=== PATIENT | female | born 1960 | race Hispanic/Latino ===

== ENCOUNTER 2019-07-23 10:16 | Observation (INO) | payer OTHER ==
[~2019-07-23] VITALS: Ht 167.6 cm; Wt 68.0 kg
[2019-07-23] MEDS ORDERED: SODIUM CHLORIDE 0.9% 1000ML 1,000 ML IV STA (10:27)
[2019-07-23 11:02] LABS: BASOPHILS % 0.7 % (0.0-1.0); EOSINOPHILS # (AUTO) 0.2 (0.0-0.4); EOSINOPHILS % 2.6 % (0.0-6.0); HEMATOCRIT 40.5 % (34.2-44.1); HEMOGLOBIN 13.5 g/dL (12.0-16.0); LYMPHOCYTES # (AUTO) 1.8 (1.0-3.2); LYMPHOCYTES % 30.8 % (18.0-39.1); MEAN CORPUSCULAR HEMOGLOBIN 27.5 pg (28-32); MEAN CORPUSCULAR HGB CONC 33.3 g/dL (31-35); MEAN CORPUSCULAR VOLUME 82.5 fL (81-99); MONOCYTES # (AUTO) 0.4 (0.2-0.8); MONOCYTES % 7.3 % (4.4-11.3); NEUTROPHILS # (AUTO) 3.4 (2.1-6.9); NEUTROPHILS % 58.1 % (38.7-80.0); PLATELET COUNT 218 x10e3/uL (140-360); RED BLOOD COUNT 4.91 x10e6/uL (3.6-5.1); RED CELL DISTRIBUTION WIDTH 13.2 % (11.7-14.4)
[2019-07-23 11:20] LABS: ALANINE AMINOTRANSFERASE 20 IU/L (0-55); ALBUMIN 4.1 g/dL (3.5-5.0); ALBUMIN/GLOBULIN RATIO 1.1 (0.8-2.0); ALKALINE PHOSPHATASE 125 IU/L (40-150); ANION GAP 15.6 mmol/L (8-16); BLOOD UREA NITROGEN 18 mg/dL (7-26); BUN/CREATININE RATIO 20 (6-25); CALCIUM 10.2 mg/dL (8.4-10.2); CARBON DIOXIDE 21 mmol/L (22-29); CHLORIDE 107 mmol/L (98-107); EST GLOMERULAR FILTRATION RATE > 60 ML/MIN (60-); GLUCOSE 93 mg/dL (74-118); POTASSIUM 3.6 mmol/L (3.5-5.1); SODIUM 140 mmol/L (136-145)
[2019-07-23] MEDS ORDERED: ONDANSETRON HCL INJ 2MG/ML 2ML 2 MG/ML VIAL IV NR (11:30)
[2019-07-23] MEDS ORDERED: KETOROLAC TROMETHAMINE 30 MG/ML VIAL IV ONE (11:30)
[2019-07-23] MEDS ORDERED: IOPAMIDOL 300MG/ML 50ML INFUS..BTL IV ONE (12:28)
[2019-07-23] MEDS ORDERED: B&O 60MG R/S 60 MG SUPP PR ONE (12:56)
[2019-07-23] MEDS ORDERED: FENTANYL CITRATE/PF 100MCG/2 ML INJ ONE ×2 (13:20→20:26)
[2019-07-23] MEDS ORDERED: ONDANSETRON HCL INJ 2MG/ML 2ML 2 MG/ML VIAL ONE (13:35)
[2019-07-23] MEDS ORDERED: METOCLOPRAMIDE HCL 10 MG/2ML VIAL ONE (13:53)
[2019-07-23 14:15] VITALS: BP 124/76
--- NOTE | 2019-07-23 14:35 | Diagnostic Imaging Report ---
Retrograde pyelogram. History: Uropathy. Comparison: None available. Discussion: Procedure was performed by urology. Contrast was injected in a retrograde fashion into the left ureter. Multiple images were obtained. Fluoro time: 23 seconds. Dose: 4.9 mGy (LEONEL) There is filling of the entire left ureter with contrast noted to flow into the left renal collecting system. A small cyst is noted filling with contrast in the lower pole of the left kidney. No filling defects are identified. Final image demonstrates a left double J internal ureteral stent extending from the left renal pelvis to the bladder. Signed by: Leonidas Bashir on 07/23/2019 2:32 PM
--- NOTE | 2019-07-23 19:25 | Operative Report ---
DATE OF PROCEDURE: SURGEON: Aime Curry MD PREOPERATIVE DIAGNOSIS: Left ureteral calculi. POSTOPERATIVE DIAGNOSIS: Left ureteral calculi. OPERATIONS PERFORMED: Cystoscopy, retrograde pyelogram, stone manipulation, dilatation of ureter, laser lithotripsy and stone extraction, and placement of double-J. ANESTHESIOLOGIST: ANESTHESIA: General. FINDINGS: The patient has a grade 1 cystocele. Urethra is normal. Meatus is normal. The bladder had grade 1 trabeculation. Ureteral orifices were normal position. Clear efflux of the right. No efflux of the left. Retrograde pyelogram showed stone just above the intramural portion of the ureter with hydroureteronephrosis. DESCRIPTION OF PROCEDURE: With the patient under satisfactory general anesthesia, the patient was placed in the supine position on the operating table. Legs were placed on stirrups. Genitalia was then prepped with Betadine soap and solution, and draped in the usual manner. A 22-Algerian cystourethroscope was then passed into the bladder. Inspection was done with a 12-degree angle lens. Using a #8 cone-tip ureteral catheter, contrast media was injected retrograde up the left ureter. The of the ureter was dilated. The contrast media would not go all the way up to the kidney after injecting 10 mL. At this point, the extra stiff guidewire was introduced all the way up to the kidney with some difficulty passing by the stone, so at this point, I introduced the dilators; and dilated the intramural portion of the ureter and successfully freeing up the stone were I saw floating up into the distal ureter. Once this was dilated to a size 10, the rigid ureteral scope was introduced up the ureter and the stone was visualized. I used a 200 micron of a green light filament. Multiple shocks were given to the stone to break it into three smaller fragments. Once it was broken into three fragments, I used a Nitinol basket to grab each piece of stone and pulled out. Some bleeding was identified from the urethral meatus. At this point, I advanced the ureteral scope up to the proximal ureter, seen no other stones. I removed the ureteral scope. The guidewire was in place and a 6-Algerian Kwart and reversal double-J was introduced up into the kidney. Contrast media was injected retrograde to make sure it was in the renal pelvis and this was identified. The J was then made in the bladder after removing the guidewire and the sleeve was used to disengage the pusher and leave the double-J in place. The string was then taped to the patient's mons pubis. The patient was then taken to recovery room in satisfactory condition. DISCHARGE INSTRUCTIONS: The patient is to continue to take her medications at home. She has Talwin Nx, ketorolac and Zofran. The patient will be returned to my office on Saturday to remove the double-J. The stone was sent in for analysis. I discussed the case with the . I gave him video pictures taken. MD CAROL Encarnacion/IDRIS /[id number]
[2019-07-23] MEDS ORDERED: MIDAZOLAM HCL 2 MG/2 ML VIAL ONE (20:26)
--- OUTSIDE RECORDS SUMMARY | 2019-07-31 11:20 | XMS REPORT | Summary of Care ---
Author Author YAJAIRA CORTÉS N.P. Unknown Address Unknown Phone Unavailable Care Team Providers Care Electrician [employer] Name Role Phone YAJAIRA CORTÉS N.P., M.D., SUE RIVER MD HI, LANCE Hale Unavailable Unavailable PERICO Navarrete, LANCE COLLAZO MD HI, MERCEDEZ Unavailable Unavailable MILANA GRAIN SHIPPER-C, ANNE Manning Unavailable Unavailable FAVIOLA DUCKWORTH, SUE QUINTERO Unavailable Unavailable Unavailable Unavailable Functional Status Name Dates Details Functional status health issues are not documented Status: Name Dates Details Cognitive status health issues are not documented Status: Problems Name Dates Details Dysfunction of Eustachian tube, unspecified laterality (381.81, H69.80) Status: Active Chest pain (786.50, R07.9) Status: Active Panic attack (300.01, F41.0) Status: Active Onychomycosis of toenail (110.1, B35.1) Status: Active Sinusitis (473.9, J32.9) Status: Active Allergic rhinitis (477.9, J30.9) Status: Active Acute pharyngitis due to other specified organisms (462, J02.8) Status: Active Acute otitis media (382.9, H66.90) Status: Active BPPV (benign paroxysmal positional vertigo) (386.11, H81.10) Status: Active Bacterial pharyngitis (462, J02.8) Status: Active Acute bronchitis (466.0, J20.9) Status: Active Acute upper respiratory infection (465.9, J06.9) Status: Active Acute bronchitis due to infection (466.0, J20.8) Status: Active Breast cancer screening (V76.10, Z12.31) Status: Active Dysthymic disorder (300.4, F34.1) Status: Active Sinusitis, acute, maxillary (461.0, J01.00) Status: Active 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, 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, nontoxic, 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, E04.2) Status: Active Symptoms of upper respiratory infection (URI) (786.09, R09.89) Status: Active Acute recurrent sinusitis (461.9, J01.91) Status: Active Acute low back pain (724.2, M54.5) Status: Active Nausea and vomiting (787.01, R11.2) Status: Active Vertigo (780.4, R42) Status: Active Visit for screening mammogram (V76.12, Z12.31) Status: Active Encounter for gynecological examination with Papanicolaou smear of cervix (V72.31, Z01.419) Status: Active Vaginal discharge (623.5, N89.8) Status: Active Yeast infection involving the vagina and surrounding area (112.1, B37.3) Status: Active Maxillary sinusitis, acute (461.0, J01.00) Status: Active Sore throat (462, J02.9) Status: Active Acute maxillary sinusitis (461.0, J01.00) Status: Active Allergic rhinitis, seasonal (477.9, J30.2) Status: Active Medications Name Dates Details Amerge TABS TAKE 1 TABLET AT ONSET OF HEADACHE, MAY REPEAT ONCE IN 4 HOURS Active Excedrin TABS take as needed * Refills: 0 Active Premarin 0.625 MG/GM Vaginal Cream USE VAGINALLY 2 TIMES A WEEK * Quantity: 30 Refills: 0 FAVIOLA Gaitan.SUE Smith * Start : 25-Oct-2018 Active Topamax 100 MG Oral Tablet take 1.5 tablets daily * Refills: 0 Active Advil TABS * Refills: 0 Active Aleve TABS * Refills: 0 Active Nystatin-Triamcinolone 441816-4.1 UNIT/GM-% External Ointment APPLY SPARINGLY TO AFFECTED AREA(S) TWICE DAILY * Quantity: 1 Refills: 2 SUE SALMERON M.D. * Start : 23-Jul-2018 Active 15 GM Tube Montelukast Sodium 10 MG Oral Tablet TAKE 1 TABLET AT BEDTIME. * Quantity: 30 Refills: 3 MILANA Pitts.YAJAIRA Sevilla * Start : 12-Nov-2018 Active Allergies and Adverse Reactions Name Dates Details Codeine Derivatives (Allergy) Status: Active Past Medical History Name Dates Details History of Acute recurrent sinusitis (461.9, J01.91) Status: Resolved History of allergic rhinitis (V12.69, Z87.09) Status: Resolved History of allergic rhinitis (V12.69, Z87.09) Status: Resolved History of Cellulitis (682.9, L03.90) Status: Resolved History of esophagitis (V12.79, Z87.19) Status: Resolved History of hiatal hernia (V12.79, Z87.19) Status: Resolved History of Migraine without status migrainosus, not intractable (346.90, G43.909) Status: Resolved History of Otitis media (382.9, H66.90) Status: Resolved History of pharyngitis (V12.69, Z87.09) Status: Resolved History of pharyngitis (V12.69, Z87.09) Status: Resolved History of Upper respiratory infection, acute (465.9, J06.9) Status: Resolved Procedures Procedure Dates Details History of Shoulder Surgery Completed History of Section Completed Immunization Name Dates Details Immunizations not documented Family History Name Dates Details Family history of Reported Prior Thyroid Disease Comments: Family History Status: Active Name Dates Details Family history of Nontoxic Nodular Goiter Status: Active Family history of High blood pressure (401.9, I10) Status: Active Name Dates Details Family history of Diabetes Mellitus (V18.0) Status: Active Family history of High blood pressure (401.9, I10) Status: Active Social History Name Dates Details - Status: Name Dates Details Never smoker Vital Signs Date Test Result Details :18 BP Systolic 102 mm[Hg] Status: Comments: Location: LUE; Position: Sitting BP Diastolic 63 mm[Hg] Status: Comments: Location: LUE; Position: Sitting Height 66 in Status: Weight 150 lb Status: Body Mass Index Calculated 24.21 kg/m2 Status: Body Surface Area Calculated 1.77 m2 Status: Temperature 97.2 f Status: Comments: Method: Temporal Heart Rate 67 /min Status: Comments: Location: L Radial; Respiration Rate 16 /min Status: Comments: Quality: Normal [id number] Physical Findings 0 Status: Comments: Alcohol Screen - How many times in the past yr have you had 5 (for M) or 4 (for F) or 4 (for all > 65yrs) or more drinks in a day? [id number]:49 BP Systolic 105 mm[Hg] Status: Comments: Location: LUE; Position: Sitting BP Diastolic 67 mm[Hg] Status: Comments: Location: LUE; Position: Sitting Height 69 in Status: Weight 150 lb Status: Body Mass Index Calculated 22.15 kg/m2 Status: Body Surface Area Calculated 1.83 m2 Status: Temperature 98.6 f Status: Comments: Method: Temporal Heart Rate 89 /min Status: Respiration Rate 16 /min Status: Results Date Description Value Details [id number]:43 [O] Streptococcus Test Rapid (In Office) Group A Strep Screen Negative (Normal) Plan of Care Name Dates Details Planned Observations Planned Goals not documented Interventions Provided Medication Changes* Montelukast Sodium 10 MG Oral Tablet - Start Medications/Immunizations Administered* CefTRIAXone Sodium 500 MG Injection Solution Reconstituted Plan* Resume taking Xyzal daily Instructions Name Dates Details Instructions not documented Encounters Appointment; YAJAIRA CORTÉS NP Encounter Diagnosis: Problem not documented On: 09-Jan-2017 13:00 Appointment; ALONSO OROURKE M.D. Encounter Diagnosis: Problem not documented On: 09-May-2017 10:00 Appointment; ALONSO OROURKE M.D. Encounter Diagnosis: Problem not documented On: 20-May-2017 11:15 Appointment; YAJAIRA CORTÉS NP Encounter Diagnosis: Problem not documented On: 11-Jun-2017 9:15 Appointment; YAJAIRA CORTÉS NP Encounter Diagnosis: Problem not documented On: 10-Oct-2017 7:30 Appointment; ISAMAR DOWNS M.D. Encounter Diagnosis: Problem not documented On: 01-Nov-2017 13:00 Appointment; YAJAIRA CORTÉS NP Encounter Diagnosis: Problem not documented On: 02-Jan-2018 9:00 Appointment; YAJAIRA CORTÉS NP Encounter Diagnosis: Problem not documented On: 20-Jan-2018 10:45 Appointment; ARNOL WILLIAM M.D. Encounter Diagnosis: Problem not documented On: 24-Jan-2018 13:00 Appointment; SUE SALMERON M.D. Encounter Diagnosis: Problem not documented On: 23-Jul-2018 9:30 Appointment; YAJAIRA CORTÉS NP Encounter Diagnosis: Problem not documented On: 05-Nov-2018 11:00 Appointment; YAJAIRA CORTÉS NP Encounter Diagnosis: Problem not documented On: 12-Nov-2018 9:00
--- OUTSIDE RECORDS SUMMARY | 2019-07-31 11:20 | XMS REPORT ---
Author Author [facility] Address Unknown Phone Unavailable Care Team Providers Care Teletype Adjuster Name Role Phone FABRIZIO LINTON Unavailable Unavailable Problems This patient has no known problems. Allergies, Adverse Reactions, Alerts This patient has no known allergies or adverse reactions. Medications This patient has no known medications. Results Test Description Test Time Test Comments Text Results Atomic Results Result Comments US RENAL RETROPERITONEAL COMP 2019-07-28 12:12:00 [place] [id number] Patient Name: EDUIN HILL V MR #: [id number] : 1960 Age/Sex: 59/F Req #: [id number] Adm Physician: FABRIZIO LINTON MD Ordered by: FABRIZIO LINTON MD Report #: [id number] Location: MED/SURG Room/Bed: [facility] Procedure: [id number] US/US RENAL RETROPERITONEAL COMP Exam Date: Exam Time: REPORT STATUS: Signed EXAM: US RENAL RETROPERITONEAL COMP DATE: 07/28/2019 8:00 AM INDICATION: Acute kidney injury COMPARISON: None FINDINGS: The right kidney is normal in size measuring 9.7 x 4.0 x 4.5 cm with cortical thickness of 1.0 cm. Cortical echogenicity is within normal limits. There is no evidence for solid renal mass, hydronephrosis, or shadowing calculi. Left kidney is normal in size measuring 11.8 x 5.0 x 4.9 cm with cortical thickness of 1.6 cm. Cortical echogenicity is within normal limits. There is no evidence for solid renal mass, hydronephrosis, or shadowing calculi. The partially distended urinary bladder demonstrates no significant abnormalities. Prevoid volume is 66 cc. IMPRESSION: Unremarkable renal ultrasound examination. Signed by: Dr. Derian Cornejo MD on 07/28/2019 12:14 PM Dictated By: DERIAN CORNEJO MD 13 Transcribed By: THANH on 07/28/191213 COPY TO: FABRIZIO LINTON MD RETROGRADE PYELOGRAM 2019-07-23 14:28:00 [place] [address] Patient Name: EDUIN HILL V MR #: [id number] : 1960 Age/Sex: 59/F Req #: [id number] Adm Physician: FABRIZIO LINTON MD Ordered by: FABRIZIO LINTON MD Report #: [id number] Location: [facility] Room/Bed: [place] [address] Procedure: [id number] DX/RETROGRADE PYELOGRAM Exam Date: 07/23/19 Exam Time: 1215 REPORT STATUS: Signed Retrograde pyelogram. History: Uropathy. Comparison: None available. Discussion: Procedure was performed by urology. Contrast was injected in a retrograde fashion into the left ureter. Multiple images were obtained. Fluoro time: 23 seconds. Dose: 4.9 mGy (LEONEL) There is filling of the entire left ureter with contrast noted to flow into the left renal collecting system. A small cyst is noted filling with contrast in the lower pole of the left kidney. No filling defects are identified. Final image demonstrates a left double J internal ureteral stent extending from the left renal pelvis to the bladder. Signed by: Leonidas Bashir on 07/23/2019 2:32 PM Dictated By: LEONIDAS BASHIR MD 1432 Transcribed By: THANH on 07/23/19 1432 COPY TO: FABRIZIO LINTON MD
== END 2019-07-23 14:15 | disposition home or self-care (01) ==
LOC: ER 10:16 → ERHOLD 10:57
PROVIDERS: ADMIT Urology; ATTEND Urology
DX: N13.2 Hydronephrosis with renal and ureteral calculous obstruction (principal)
CPT/HCPCS: 52005; 52282; S2070; 36415; 74420; 80053; 85025; 88300; 99284; C1758; C2625; G0378; J2250; J2405; J2765; J3010

== ENCOUNTER 2019-07-26 14:45 | Observation (INO) | payer OTHER ==
[~2019-07-26] VITALS: Ht 167.6 cm; Wt 68.0 kg
[2019-07-26] MEDS ORDERED: SODIUM CHLORIDE 0.9% 1000ML 1,000 ML IV STA (14:46)
[2019-07-26] MEDS ORDERED: ONDANSETRON HCL INJ 2MG/ML 2ML 2 MG/ML VIAL IV NR (16:00)
[2019-07-26] MEDS ORDERED: MORPHINE SULFATE INJ 4 MG/ML INJ 1ML IV NR (16:00)
[2019-07-26] MEDS: CEFTRIAXONE SOD 1 GM/NS 50 ML 50 ML IV SCH (16:26)
[2019-07-26 16:28] LABS: BASOPHILS % 0.2 % (0.0-1.0); EOSINOPHILS # (AUTO) 0.1 (0.0-0.4); EOSINOPHILS % 0.7 % (0.0-6.0); HEMATOCRIT 38.1 % (34.2-44.1); HEMOGLOBIN 12.9 g/dL (12.0-16.0); LYMPHOCYTES # (AUTO) 0.7 (1.0-3.2); LYMPHOCYTES % 4.8 % (18.0-39.1); MEAN CORPUSCULAR HEMOGLOBIN 27.3 pg (28-32); MEAN CORPUSCULAR HGB CONC 33.9 g/dL (31-35); MEAN CORPUSCULAR VOLUME 80.7 fL (81-99); MONOCYTES % 6.7 % (4.4-11.3); NEUTROPHILS # (AUTO) 12.5 (2.1-6.9); NEUTROPHILS % 86.8 % (38.7-80.0); PLATELET COUNT 171 x10e3/uL (140-360); RED BLOOD COUNT 4.72 x10e6/uL (3.6-5.1); RED CELL DISTRIBUTION WIDTH 13.1 % (11.7-14.4)
[2019-07-26 16:54] LABS: ALBUMIN 3.6 g/dL (3.5-5.0); ALBUMIN/GLOBULIN RATIO 0.9 (0.8-2.0); ANION GAP 16.3 mmol/L (8-16); CALCIUM 9.6 mg/dL (8.4-10.2); CREATININE, SERUM 0.98 mg/dL (0.57-1.11); POTASSIUM 3.3 mmol/L (3.5-5.1)
[2019-07-26 17:11] LABS: CLARITY,URINE CLEAR (CLEAR); COLOR,URINE YELLOW (YELLOW); LEUKOCYTE ESTERASE ,URINE TRACE (NEGATIVE)
[2019-07-26 17:12] LABS: BILIRUBIN,URINE NEGATIVE (NEGATIVE); KETONES,URINE 1+ (NEGATIVE); NITRITE,URINE NEGATIVE (NEGATIVE); PROTEIN,URINE DIPSTICK NEGATIVE (NEGATIVE); URINE UROBILINOGEN 0.2 mg/dL (0.2 - 1)
[2019-07-26 17:13] LABS: BACTERIA,URINE RARE /HPF; EPITHELIAL CELLS,URINE FEW /LPF
[2019-07-26] MEDS: SODIUM CHLORIDE 0.9% 1000ML 1,000 ML IV SCH (17:26)
[2019-07-26] MEDS: ONDANSETRON HCL INJ 2MG/ML 2ML 2 MG/ML VIAL IV PRN (22:55)
[2019-07-26] MEDS: MORPHINE SULFATE INJ 4 MG/ML INJ 1ML IV PRN (22:55)
[2019-07-26 23:30] VITALS: BP 117/58
[2019-07-27] VITALS (8 sets, daily range): BP systolic 101–161; BP diastolic 57–71
[2019-07-27] MEDS: SODIUM CHLORIDE 0.9% 1000ML 1,000 ML IV SCH ×3 (00:18→16:07)
--- NOTE | 2019-07-27 00:29 | History and Physical ---
REASON FOR ADMISSION: Pyelonephritis and dehydration. HISTORY: This is a 59-year-old female, who 48 hours ago had a stone removed from her left kidney. The patient did well and went home in satisfactory condition. Yesterday afternoon, the patient called me and stated that she was having burning, frequency, and urgency. I gave her Bactrim and I gave her an anticholinergic Myrbetriq for her frequency and urgency. This afternoon she called me that she had a fever of 102. As stated yesterday, I felt that if she had an infection, it will be an uncomplicated pyelonephritis, could be treated as an outpatient, but with her having fever of 102 and not eating anything according to her and brought her in with an infection and dehydration. In the hospital in the emergency room, she has a lymphocytosis not extremely high. Urinalysis showed a few bacteria and red blood cells. My decision is to observe her over the next 24-48 hours here in the hospital. I will give her Rocephin 1 g every 12 hours. I will give her something for her nausea, hydrate her with IV and see when she can eat regular diet, perhaps in the next 24 hours, 48 hours, she will be able to go home on oral medication. PHYSICAL EXAMINATION: The patient has low abdominal discomfort over the suprapubic area and extending to the left lower quadrant. Obviously, this related to ureteroscopy and laser lithotripsy done to extract her stone. She does not have a double-J at this point. For rest of her past medical history, see previous dictation. IMPRESSION: Pyelonephritis, status post ureteroscopy and stone extraction. PLAN: Plan is to give her IV antibiotics, hydrate her and treat her infection with IV antibiotics. MD CAROL Encarnacion/MODL /[id number]
[2019-07-27] MEDS: ONDANSETRON HCL INJ 2MG/ML 2ML 2 MG/ML VIAL IV PRN ×2 (03:51→08:39)
[2019-07-27] MEDS: CEFTRIAXONE SOD 1 GM/NS 50 ML 50 ML IV SCH ×2 (03:51→15:12)
[2019-07-27] MEDS ORDERED: TOPAMAX25 MG PO (05:40)
[2019-07-27] MEDS: MORPHINE SULFATE INJ 4 MG/ML INJ 1ML IV PRN (05:51)
--- NOTE | 2019-07-27 07:02 | NUR ---
Received patient lying in bed with eyes open, denies pain. Respiration even and unlabored without SOB. Call light in reach. Family member at bedside.
[2019-07-27] MEDS ORDERED: SUMATRIPTAN SUCCINATE 25 MG TAB PO PRN (08:15)
[2019-07-27] MEDS ORDERED: KETOROLAC TROMETHAMINE 30 MG/ML VIAL IV PRN (18:15)
--- NOTE | 2019-07-27 19:00 | NUR ---
RECEIVED PATIENT IN BEDSIDE REPORT. PATIENT RESTING IN BED AT THIS TIME, STATES HEADACHE PAIN IS 2/10. NO OTHER COMPLAINTS. NO S&S OF DISTRESS NOTED. BED LOCKED IN LOWEST POSITION, SIDE RAILS UPX2, CALL LIGHT IN REACH.
--- NOTE | 2019-07-27 19:03 | NUR ---
Report given to night clerk. Respiration even and unlabored without SOB. Family at bedside. Call light in reach.
[2019-07-28] VITALS: BP 95/53
[2019-07-28] MEDS: SODIUM CHLORIDE 0.9% 1000ML 1,000 ML IV SCH ×2 (03:16→09:17)
[2019-07-28 04:00] VITALS: BP 93/51
[2019-07-28 07:13] VITALS: BP 105/72
[2019-07-28 08:01] VITALS: BP 105/72
--- NOTE | 2019-07-28 09:30 | NUR ---
In for second rounds and the pt. c/o tenderness at the iv site. The fluids were stopped and will remove the iv cath. She reports that she does not want it restarted as she is supposed to go home.
--- NOTE | 2019-07-28 10:30 | NUR ---
sent to outside md review group
[2019-07-28 11:14] VITALS: BP 113/72
--- NOTE | 2019-07-28 12:14 | NUR ---
Spoke with Dr. Curry about inpt vs obs - he states no need for inpt, patient going today
--- NOTE | 2019-07-28 12:17 | Diagnostic Imaging Report ---
EXAM: US RENAL RETROPERITONEAL COMP DATE: 07/28/2019 8:00 AM INDICATION: Acute kidney injury COMPARISON: None FINDINGS: The right kidney is normal in size measuring 9.7 x 4.0 x 4.5 cm with cortical thickness of 1.0 cm. Cortical echogenicity is within normal limits. There is no evidence for solid renal mass, hydronephrosis, or shadowing calculi. Left kidney is normal in size measuring 11.8 x 5.0 x 4.9 cm with cortical thickness of 1.6 cm. Cortical echogenicity is within normal limits. There is no evidence for solid renal mass, hydronephrosis, or shadowing calculi. The partially distended urinary bladder demonstrates no significant abnormalities. Prevoid volume is 66 cc. IMPRESSION: Unremarkable renal ultrasound examination. Signed by: Dr. Derian Cornejo MD on 07/28/2019 12:14 PM
--- NOTE | 2019-07-28 14:08 | Progress Note ---
DATE: 07/28/2019 SUBJECTIVE: Today, the patient is afebrile. Her headache is gone. She has had bowel movement and she has had been urinating normally. She offers no complaints now and I reviewed her ultrasound with her and her , who was present and told them the ultrasound was completely normal. There is no hydronephrosis, no obstruction. She has not had a fever in the last 24 hours and we agree that she is going to go home today. DISCHARGE INSTRUCTIONS: Continue her medications. I will give her Bactrim to take one twice daily. She is to continue all her medications. Diet as tolerated. Activity as tolerated. I will follow her in the office and we will discuss her stone analysis once it is available. MD CAROL Encarnacion/MODL /[id number]
--- NOTE | 2019-07-29 04:43 | Discharge Summary ---
REASON FOR ADMISSION: Pyelonephritis and dehydration. FINAL DIAGNOSES: Pyelonephritis and dehydration. HISTORY: This is a 59-year-old female, who was admitted to the hospital 48 hours after stone removal from her left kidney. The patient did well postoperatively, but the day before admission, the patient called me complaining of burning, frequency, and urgency. I gave her some Bactrim and Myrbetriq both to treat her infection if she had any, believing that since she has an uncomplicated urological history and she is not diabetic, not on any immunosuppressant, and not obstructed because the stone had been removed that if she had pyelonephritis, she would be an uncomplicated and any oral antibiotic will take care of it. The patient did call me back that she was having increased pain and that she was having fever up to 102 despite her Tylenol. With that, she came to the emergency room and got admitted when she was found to have also lymphocytosis and increased pain. STAY IN THE HOSPITAL: The patient received Rocephin, IV fluids, developed migraine, for which she took medication. On the day of discharge today, the patient is doing well and has tolerated diet and has urinated. An ultrasound done today shows no evidence of hydronephrosis or inflammation. She has both ureteral jets open and normal and the bladder empties as well. PLAN: Plan is to send her home on Bactrim. I will follow her in the office next week. She is to call me should there be any other problems. ACTIVITY: As tolerated. DIET: As tolerated. MEDICATIONS: Continue all her medications at home. MD CAROL Encarnacion/MARIELL /[id number]
== END 2019-07-28 13:03 | disposition home or self-care (01) ==
LOC: ER 14:45 → ERHOLD 18:27 → MED/SURG 22:00
PROVIDERS: ADMIT Urology; ATTEND Urology
DX: N12 Tubulo-interstitial nephritis, not specified as acute or chronic (principal); E86.0 Dehydration; D72.820 Lymphocytosis (symptomatic); Z98.890 Other specified postprocedural states
CPT/HCPCS: 36415; 76770; 80053; 81001; 85025; 87040; 87086; 99284; G0378 ×3; J0696 ×2; J2270 ×2; J2405 ×2; J7030 ×3